=== PATIENT | female | born 1990 | race Caucasian/White ===

== ENCOUNTER 2023-09-26 07:07 | Emergency (ER) | payer BC ==
[~2023-09-26] VITALS: Ht 165.1 cm; Wt 160.0 kg
[2023-09-26 07:10] VITALS: O2SAT 99
[2023-09-26] MEDS: KETOROLAC 60MG/2ML VIAL IM ONE (07:15)
[2023-09-26] MEDS ORDERED: LIDOCAINE 5% PATCH TOP SCH (07:15)
[2023-09-26] MEDS: DIAZEPAM 5 MG TABLET PO ONE (07:15)
[2023-09-26] MEDS ORDERED: LIDO700A30 TP (09:47)
[2023-09-26 11:14] VITALS: BP 145/89; PULSE 88; RESP 16; TEMP 98.3
[2023-09-27] MEDS ORDERED: LIDOCAINE 5% PATCH TOP SCH (09:00)
== END 2023-09-26 11:14 | disposition home or self-care (01) ==
LOC: ER 07:07
DX: M54.30 Sciatica, unspecified side (principal); Z88.0 Allergy status to penicillin
CPT/HCPCS: 99283; J1885